=== PATIENT | female | born 1975 | race Caucasian/White ===

== ENCOUNTER 2018-06-27 13:32 | Emergency (ER) | payer MEDICAID, OTHER ==
[2018-06-27 13:33] VITALS: BMI 53.1
[2018-06-27] MEDS ORDERED: Sodium Chloride 0.9% 1,000 ML IV ONE (14:14)
[2018-06-27 14:33] LABS: BASO # 0.1 K/uL (0.0-0.2); BASO % 0.6 % (0.0-2.0); EOS # 0.3 K/uL (0.0-0.7); EOS % 2.1 % (0.0-4.0); HEMOGLOBIN 8.8 g/dL (11.0-16.0); LYMPH # 0.4 K/uL (1.0-4.3); LYMPH % 2.9 % (20.0-40.0); MEAN CELL VOLUME 62.2 fL (81.0-99.0); MEAN CORPUSCULAR HEMOGLOBIN 20.2 pg (27.0-31.0); MEAN CORPUSCULAR HGB CONC 32.4 g/dL (33.0-37.0); MEAN PLATELET VOLUME 8.3 fL (7.2-11.7); MONO # 2.5 K/uL (0.0-0.8); MONO % 20.4 % (0.0-10.0); NEUT # 9.2 K/uL (1.8-7.0); PLATELET COUNT 364 K/uL (130-400); RBC 4.36 Mil/uL (3.80-5.20); RED CELL DISTRIBUTION WIDTH 18.5 % (11.5-14.5); WHITE BLOOD COUNT 12.4 K/uL (4.8-10.8)
[2018-06-27 14:45] LABS: EOSINOPHIL 2 % (0-4); LYMPHOCYTE 5 % (20-40); MONOCYTE 18 % (0-10); NEUTROPHIL 75 % (50-75); TOTAL CELLS COUNTED 100
[2018-06-27 14:46] LABS: PLATELET ESTIMATE NORMAL (NORMAL)
[2018-06-27] MEDS ORDERED: Sodium Chloride 0.9% 1,000 ML ONE (14:46)
[2018-06-27 14:47] LABS: ANISOCYTOSIS MODERATE
[2018-06-27 14:48] LABS: ALB/GLOB RATIO 1.3 (1.0-2.1); ALBUMIN 4.6 g/dL (3.5-5.0); ALT/SGPT 32 U/L (9-52); AST/SGOT 24 U/L (14-36); BLOOD UREA NITROGEN 15 mg/dL (7-17); CALCIUM 8.5 mg/dl (8.6-10.4); GFR NON-AFRICAN AMERICAN > 60; HYPOCHROMIC MODERATE; LIPASE 53 U/L (23-300); MICROCYTOSIS MODERATE; POIKILOCYTOSIS SLIGHT; POLYCHROMIC SLIGHT; SPHEROCYTES SLIGHT; TARGET CELLS MODERATE
[2018-06-27 14:49] LABS: SCHISTOCYTES SLIGHT
[2018-06-27 15:39] VITALS: BP 116/76; PULSE 65; RESP 18; TEMP 97.9; O2SAT 100
--- NOTE | 2018-06-27 16:52 | C.PDOC ---
History Of Present Illness 42 year old female presents to the emergency department with complaints of vomiting twice status-post being involved in an argument with her family. Patient states that after vomiting, she is now feeling better in the ED. Patient has a history of depression, she denies suicidal and homicidal ideation. She has no other complaints at this time. Time Seen by Provider: 06/27/18 13:50 Chief Complaint (Nursing): Abdominal Pain History Per: Patient History/Exam Limitations: no limitations Onset/Duration Of Symptoms: Hrs Current Symptoms Are (Timing): Gone Context: Other (argument) Past Medical History Reviewed: Historical Data, Nursing Documentation, Vital Signs Vital Signs: Last Vital Signs Temp 97.9 F 06/27/18 15:36 Pulse 65 06/27/18 15:36 Resp 18 06/27/18 15:36 BP 116/76 06/27/18 15:36 Pulse Ox 100 06/27/18 15:36 - Medical History PMH: Depression, Hypercholesterolemia, Migraine, Schizophrenia Denies: Diabetes, Hepatitis, HIV, HTN, Chronic Kidney Disease, Seizures, Sexually Transmitted Disease Surgical History: No Surg Hx - [facility] Procedures GROUP PSYCHOTHERAPY (04/21/18) INDIVID PSYCHOTHERAP NEC (05/11/14) INDIVIDUAL PSYCHOTHERAPY, BEHAVIORAL (04/21/18) OTHER GROUP THERAPY (04/27/13) Family History: States: Unknown Family Hx - Social History Hx Alcohol Use: No Hx Substance Use: No Review Of Systems Except As Marked, All Systems Reviewed And Found Negative. Constitutional: Negative for: Fever, Chills Gastrointestinal: Positive for: Vomiting Psych: Negative for: Suicidal ideation Physical Exam - Physical Exam Appears: Non-toxic, No Acute Distress Skin: Warm, Dry Head: Atraumatic, Normacephalic Eye(s): bilateral: Normal Inspection, PERRL, EOMI Nose: Normal Oral Mucosa: Moist Neck: Normal, Supple Chest: Symmetrical, No Tenderness Cardiovascular: Rhythm Regular, No Murmur Respiratory: No Rales, No Rhonchi, No Wheezing Gastrointestinal/Abdominal: Soft, No Tenderness, No Guarding, No Rebound Neurological/Psych: Oriented x3, Normal Speech, Normal Cognition ED Course And Treatment - Laboratory Results Result Diagrams: 06/27/18 14:30 06/27/18 14:30 O2 Sat by Pulse Oximetry: 100 (RA) Pulse Ox Interpretation: Normal Medical Decision Making Medical Decision Making: Plan: Chemistry Bloodwork Pepcid 20mg PO Zofran 4mg IVP NaCl IV Fluids Disposition - Disposition Referrals: [facility] [Outside] [facility] [Outside] Disposition: HOME/ ROUTINE Disposition Time: 15:00 Condition: IMPROVED Additional Instructions: JACK NORRIS, thank you for letting us take care of you today. The emergency medical care you received today was directed at your acute symptoms. If you were prescribed any medication, please fill it and take as directed. It may take several days for your symptoms to resolve. Return to the Emergency Department if your symptoms worsen, do not improve, or if you have any other problems. Please contact your doctor or call one of the physicians/clinics you have been referred to that are listed on the Patient Visit Information form that is included in your discharge packet. Bring any paperwork you were given at [facility] with you along with any medications you are taking to your follow up visit. Our treatment cannot replace ongoing medical care by a primary care provider outside of the emergency department. Thank you for allowing the [facility] team to be part of your care today. Take [id number] iron as directed. Follow up with your primary care doctor or our clinic next week for re-eval uation and further management. Instructions: Anemia Caused by Low Iron, Adult (DC), Anxiety, Adult (DC), Gastritis (DC) Forms: indico (Turkmen) - Clinical Impression Clinical Impression: Anxiety, Iron deficiency anemia - Scribe Statement The provider has reviewed the documentation as recorded by the Scribe (Ammon Saunders) Provider Attestation: All medical record entries made by the Scribe were at my direction and personally dictated by me. I have reviewed the chart and agree that the record accurately reflects my personal performance of the history, physical exam, medical decision making, and the department course for this patient. I have also personally directed, reviewed, and agree with the discharge instructions and disposition.
== END 2018-06-27 15:40 | disposition home or self-care (01) ==
LOC: C.ER 13:32
DX: F41.9 Anxiety disorder, unspecified (principal); D50.9 Iron deficiency anemia, unspecified
CPT/HCPCS: 80053; 83690; 85025; 96374; 96375; 99285; J2405; J7030